=== PATIENT | female | born 1985 | race Caucasian/White ===

== ENCOUNTER 2022-05-30 11:03 | Outpatient (CLI) | payer BC, SELFPAY ==
[2022-05-30 13:57] LABS: Basophils Absolute Auto 0.04 K/uL (0.00-0.30); Basophils Percent Auto 0.6 % (0.0-3.0); Eosinophils Absolute Auto 0.07 K/uL (0.00-0.50); Eosinophils Percent Auto 1.1 % (0.0-7.0); Hematocrit 42.1 % (33.0-51.0); Hemoglobin* 13.7 gm/dL (12.0-16.0); Lymphocytes Absolute Auto 1.49 K/uL (0.90-2.90); Lymphocytes Percent Auto 23.7 % (20-44); Mean Corpuscular HGB Conc 33 gm/dL (32-36); Mean Corpuscular Hemoglobin 30 pg (26-34); Mean Corpuscular Volume 91 fL (80-100); Monocytes Percent Auto 7.8 % (0.0-11.0); Neutrophils Absolute Auto 4.21 K/uL (1.7-7.0); Neutrophils Percent Auto 66.8 % (42.0-72.0); Platelet Count* 191 K/uL (140-440); RDW Coefficient of Variation % 12.5 % (11.5-15.5); Red Blood Count 4.65 m/uL (4.00-5.20)
[2022-05-30 14:01] LABS: Slide Review Reflex No
[2022-05-30 14:05] LABS: Chloride* 102 mmol/L (96-114); Potassium* 4.4 mmol/L (3.6-5.1); Sodium* 138 mmol/L (135-149)
[2022-05-30 14:08] LABS: Blood Urea Nitrogen* 18 mg/dL (5-24); Carbon Dioxide* 30 mmol/L (20-32); Creatinine* 0.7 mg/dL (0.5-1.5); Estimated Glomerular Filt Rate 116 ml/min
[2022-05-30 14:09] LABS: Calcium* 9.2 mg/dL (8.4-10.6); Glucose* 77 mg/dL (60-115)
== END 2022-05-30 11:04 | disposition home or self-care (01) ==
PROVIDERS: PCP Family Medicine; Visit Provider Family Medicine
DX: R53.83 Other fatigue (principal); R20.2 Paresthesia of skin
CPT/HCPCS: 80048; 84443; 85025

== ENCOUNTER 2022-12-30 14:02 | Outpatient (CLI) | payer BC, SELFPAY | END 2022-12-30 14:03 | disposition home or self-care (01) | PROVIDERS: PCP Family Medicine; Visit Provider Family Medicine | DX: R63.4 Abnormal weight loss (principal); E55.9 Vitamin D deficiency, unspecified | CPT/HCPCS: 80053; 84443; 85025; 86703 ==

== ENCOUNTER 2023-01-22 08:57 | Outpatient (CLI) | payer BC, SELFPAY ==
--- NOTE | 2023-01-22 09:00 | CRLHL7_ITS ---
For Patients: As a result of the Century Cures Act, medical imaging exams and procedure reports are released immediately into your electronic medical record. You may view this report before your referring provider. If you have questions, please contact your health care provider. Indication: SINUSITIS. NASAL PRESSURE Technique: Performed without IV contrast Comparison: None available Findings: Frontal sinuses: Clear. Ethmoid sinuses: Partial opacification of the left ethmoid sinus. Clear right ethmoid sinus. Maxillary sinuses: Mucosal thickening within the maxillary sinuses bilaterally, minimal. The maxillary sinus drainage pathways are patent on both sides. Sphenoid sinuses: Clear, including both sphenoethmoidal recesses. Nasal Cavity: Bilateral postoperative changes are present. Mild rightward curvature of the anterior nasal septum. No nasal polyps. Narrowing and spurring at the temporomandibular joints bilaterally. The visualized portions of the orbits, intracranial contents and upper soft tissue neck are grossly negative. Impression: 1. Bilateral postoperative changes. 2. Mild mucosal thickening in both maxillary sinuses and the left ethmoid sinus. Sinus drainage pathways are clear. 3. 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 Please note that all CT scans at this facility use dose modulation, iterative reconstruction, and/or weight-based dosing when appropriate to reduce radiation dose to as low as reasonably achievable. Dictated by Yassine Deleon MD @ 01/22/2023 12:15:38 PM (Electronically Signed)
== END 2023-01-22 08:58 | disposition home or self-care (01) ==
LOC: CT 08:58
PROVIDERS: PCP Family Medicine; Visit Provider Otolaryngology
DX: J32.9 Chronic sinusitis, unspecified (principal); J32.0 Chronic maxillary sinusitis; J32.2 Chronic ethmoidal sinusitis
CPT/HCPCS: 70486

== ENCOUNTER 2023-09-24 08:59 | Outpatient (CLI) | payer BC, SELFPAY ==
--- OUTSIDE RECORDS SUMMARY | 2023-09-24 09:03 | XMS_ITS | Continuity of Care Document ---
Author Name Unknown Organization [facility] Address [address] [place] [address] Phone Care Team Providers Care Machine Leather Trimmer Name Role Phone Madiha OSEI MD, Blair Unavailable Unavailable Allergies, Adverse Reactions, Alerts Substance Reaction Status Criticality amoxicillin Rash Active No Information cefaclor ceclor syrum sickness Active No Inf ormation Medications Medication Instructions Dosage Effective Dates (start - stop) Status Comments Buproban 150 mg Tab take 1 tablet (150MG) by oral route 2 times every day - Active Singulair 10 mg Tab take 1 tablet (10MG) by oral route every day in the evening 10 MG - Active Advair Diskus 250 mcg-50 mcg/dose for Inhalation inhale 1 puff by inhalation route 2 times every day in the morning and evening approximately 12 hours apart 1.00 puff - Active ProAir HFA 90 mcg/Actuation Aerosol Inhaler inhale 2 puff by inhalation route every 4 - 6 hours as needed - Active ZOFRAN ODT 8 mg disintegrating tablet take 1 tablet (8MG) by ORAL route 3 times every day and place on top of the tongue where it will dissolve, then swallow 8 MG - Active omeprazole 40 mg Cap, Delayed Release take 1 capsule (40MG) by oral route every day before a meal 40 MG - Active lorazepam 1 mg Tab take 1 tablet (1MG) by oral route 2 times every day 1 MG - Active Elrosa 5 mg-325 mg tablet 1-2 per day - No Longer Active Topamax 100 mg tablet take 1 Tablet (100MG) by oral route 2 times every day 100 MG - No Longer Active Procedures Procedure Date Triggerpoint 3 Muscle Ultrason Guidan Needle Bx-rad 4 Offic/outpt E&m Estab Mod-hi 2 14 Offic/outpt E&m Estab Mod-hi 2 13 Inj Anes Facet Jt; Cerv/thor-1st Level N Inj Anes Facet Jt; Cerv/thor-2nd Level N Inj Anes Facet Jt; Cerv/thor-3rd Level N Mod cs by same phys, 5 yrs + Inj Anes Facet Jt; Cerv/thor-1st Level N Inj Anes Facet Jt; Cerv/thor-2nd Level N Inj Anes Facet Jt; Cerv/thor-3rd Level N Triggerpoint 1-2 Muscle Depomedrol 80mg Offic/outpt E&m Estab Mod-hi 2 13 Offic/outpt E&m Estab Mod-hi 2 13 Marcaine 30ml Pepperell Only Sterile Any Size 3 Local Tray Offic/outpt E&m Estab Mod-hi 2 13 Inj Anes Facet Jt; Cerv/thor-3rd Level M Inj Anes Facet Jt; Cerv/thor-1st Level M Inj Anes Facet Jt; Cerv/thor-2nd Level M Mod cs by same phys, 5 yrs + IV Cons Sed each addl 15M Lo Osm Contr Mat (200-249mg) Offic/outpt E&m Estab Mod-hi 2 13 Triggerpoint 1-2 Muscle Depomedrol 80mg Offic/outpt E&m Estab Mod-hi 2 13 Psychotherapy, 45 minutes with patient o r family Offic/outpt E&m Estab Low-mod 3 Inj Not Lytic-epidur; Cerv/tho 13 Epidurography Rad S&i Moderate sedation services Inj Not Lytic-epidur; Cerv/tho 13 Ultrason Guidan Needle Bx-rad 3 Triggerpoint 1-2 Muscle Depomedrol 80mg QA DONE Offic/outpt E&m Estab Mod-hi 2 13 Psychiatric Diagnostic Evaluation Offic/outpt E&m Estab Mod-hi 2 13 Offic/outpt E&m Estab Mod-hi 2 12 Offic/outpt E&m Estab Mod-hi 2 12 Offic/outpt E&m Estab Low-mod 2 Offic/outpt E&m Estab Mod-hi 2 12 Inj Anes Facet Jt; Cerv/thor-1st Level J Moderate sedation services Inj Anes Facet Jt; Cerv/thor-1st Level J Inj Anes Facet Jt; Cerv/thor-1st Level J Inj Anes Facet Jt; Cerv/thor-3rd Level J Inj Anes Facet Jt; Cerv/thor-2nd Level J Inj Anes Facet Jt; Cerv/thor-1st Level J Inj Anes Facet Jt; Cerv/thor-2nd Level J Inj Anes Facet Jt; Cerv/thor-3rd Level J Inj Anes Facet Jt; Cerv/thor-1st Level J Inj Anes Facet Jt; Cerv/thor-2nd Level J Inj Anes Facet Jt; Cerv/thor-3rd Level J Inj Anes Facet Jt; Cerv/thor-3rd Level J Inj Anes Facet Jt; Cerv/thor-1st Level J Inj Anes Facet Jt; Cerv/thor-2nd Level J Inj Anes Facet Jt; Cerv/thor-1st Level M ay-09-2012 Inj Anes Facet Jt; Cerv/thor-2nd Level M Inj Anes Facet Jt; Cerv/thor-3rd Level M Inj Anes Facet Jt; Cerv/thor-3rd Level M Inj Anes Facet Jt; Cerv/thor-2nd Level M Inj Anes Facet Jt; Cerv/thor-1st Level M Offic/outpt E&m Estab Mod-hi 2 12 Inj Anes Facet Jt; Cerv/thor-2nd Level A Inj Anes Facet Jt; Cerv/thor-1st Level A Inj Anes Facet Jt; Cerv/thor-3rd Level A Inj Anes Facet Jt; Cerv/thor-1st Level A Inj Anes Facet Jt; Cerv/thor-3rd Level A Inj Anes Facet Jt; Cerv/thor-2nd Level A Moderate sedation services Greater Occipital Block Depomedrol 80mg Offic/outpt E&m Estab Mod-hi 2 12 QA DONE Inj Not Lytic-epidur; Cerv/tho 12 Inj Not Lytic-epidur; Cerv/tho 12 Offic/outpt E&m Estab Mod-hi 2 12 Offic Cons New/estab Mod-hi 60 12 QA DONE Advance Directives Directive Yes / No Effective Date File Name No Information Encounters Encounter Description Practice Location Reason(s) For Visit Diagnoses Date Provider Providers Copied on Encounter LORI Esquivel, [address], [place], [place], [address], [place] tel:[phone] [facility] No Information 4 Madiha Pinto. [address] [place], [address], [place]. tel:[phone] Referring Provider: Govind Justice MD, [address], [place], [address]. tel:[phone] Offic/outpt E&m Estab Mod-hi [address] [facility], [address], [place], [place], [address], [place] tel:[phone] [facility] No Information 4 Kasey Tucker Nabeel. [address] [place], [address], [place]. Referring Provider: Govind Justice MD, [address], [place], [address]. tel:[phone] Offic/outpt E&m Estab Mod-hi 2 [facility], [address], [place], [place], [address], [place] tel:[phone] [facility] No Information 3 Kasey Tucker [facility]. [address] [place], [address], [place]. Referring Provider: Govind Justice MD, [address], [place], [address]. tel:[phone] [facility], [address], [place], [place], [address], [place] tel:[phone] [facility] [place] No Information 3 Sarah Metzger. [address], [place], [place], [address], [place]. tel:[phone] Referring Provider: Govind Justice MD, [address], [place], [address]. tel:[phone] [facility], [address], [place], [address], [place] tel:[phone] [facility] [place] No Information 3 Sarah Metzger. [address], [place], [place], [address], [place]. tel:[phone] Referring Provider: Yassine Cortez, [address], [place], [address] . tel:[phone] [facility], [address], [place], [place], [address], [place] [phone] [facility] No Information 3 No Information Referring Provider: Govind Justice MD, [address], [place], [address]. tel:[phone] Offic/outpt E&m Estab Mod-hi 2 [facility], [facility], [address], [place], [place], [address], [place] tel:[phone] [facility] No Information 3 Kasey Lees. [address] [place], [address], [place]. Referring Provider: Govind Justice MD, [address], [place], [address]. tel:[phone] Offic/outpt E&m Estab Mod-hi 2 [facility], [facility], [address], [place], [place], [address], [place] tel:[phone] [facility] No Information 3 Kasey Lees. [address] [place], [address], [place]. Referring Provider: Govind Justice MD, [address], [place], [address]. tel:[phone] [facility], [address], [place], [place], [address], [place] tel:[phone] [facility] No Information 3 Molly Patel. [address], [place], [place], [address], [place]. tel:[phone] Referring Provider: Govind Justice MD, [address], [place], [address]. tel:[phone] Offic/outpt E&m Estab Mod-hi 2 [facility], [facility], [address], [place], [place], [address], [place] tel:[phone] [facility] No Information 3 Parks Caitlin Nabeel. [address] [place], [address], [place]. Referring Provider: Govind Justice MD, [address], [place], [address]. tel:[phone] [facility], [facility], [address], [place], [place], [address], [place] tel:[phone] [facility] No Information 3 Sarah Metzger. [address], [place], [place], [address], [place]. tel:[phone] Referring Provider: Govind Justice MD, [address], [place], [address]. tel:[phone] Offic/outpt E&m Estab Mod-hi 2 [facility], [facility], [address], [place], [place], [address], [place] tel:[phone] [facility] No Information 3 Kasey Tucker Nabeel. [address] [place], [address], [place]. Referring Provider: Govind Justice MD, [address], [place], [address]. tel:[phone] [facility], [facility], [address], [place], [place], [address], [place] tel:[phone] [facility] No Information 3 No Information Referring Provider: Govind Justice MD, [address], [place], [address]. tel:[phone] Offic/outpt E&m Estab Mod-hi 2 [facility], [address], [place], [place], [address], [place] tel:[phone] [facility] No Information 3 Kasey Tucker Nabeel. [address] [place], [address], [place]. Referring Provider: Govind Justice MD, [address], [place], [address]. tel:[phone] Psychotherapy , 45 minutes with patient or family [facility], [address], [place], [place], [address], [place] tel:[phone] [facility] No Information 3 Marilou MIDDLETON Kaylan. [address], [place], [address], [place]. tel:[phone] Referring Provider: Govind Justice MD, [address], [place], [address]. tel:[phone] Offic/outpt E&m Estab Low-mod [facility], [address], [place], [place], [address], [place] tel:[phone] [facility] No Information 3 Parks Caitlin Lees. [address] [place], [address], [place]. Referring Provider: Govind Justice MD, [address], [place], [address]. tel:[phone] [facility], [address], [place], [place], [address], [place] tel:[phone] [facility] No Information 3 Sarah Metzger. [address], [place], [place], [address], [place]. tel:[phone] Referring Provider: Govind Justice MD, [address], [place], [address]. tel:[phone] [facility] [place], [address], [place], [address], [place] tel:[phone] [facility] No Information 3 Sarah Metzger. [address], [place], [place], [address], [place]. tel:[phone] Referring Provider: Yassine Cortez, [address], [place], [address] . tel:[phone] [facility], [address], [place], [place], [address], [place] tel:[phone] [facility] No Information 3 Sarah Metzger. [address], [place], [place], [address], [place]. tel:[phone] Referring Provider: Govind Justice MD, [address], [place], [address]. tel:[phone] Offic/outpt E&m Estab Mod-hi 2 [facility], [address], [place], [place], [address], [place] tel:[phone] [facility] No Information 3 Kasey Lees. [address] [place], [address], [place]. Referring Provider: Govind Justice MD, [address], [place], [address]. tel:[phone] Psychiatric Diagnostic Evaluation [facility], [address], [place], [place], [address], [place] tel:[phone] [facility] No Information 3 Marilou Kimbrough. [address], [place], [address], [place]. tel:[phone] Referring Provider: Govind Justice MD, [address], [place], [address]. tel:[phone] Offic/outpt E&m Estab Mod-hi 2 [facility], [facility], [address], [place], [place], [address], [place] tel:[phone] [facility] No Information 3 Kasey Lees. [address] [place], [address], [place]. Referring Provider: Govind Justice MD, [address], [place], [address]. tel:[phone] Offic/outpt E&m Estab Mod-hi 2 [facility], [address], [place], [place], [address], [place] tel:[phone] [facility] No Information 2 Eliz Maddox. [address], [place], [address], [place]. tel:[phone] Referring Provider: Govind Justice MD, [address], [place], [address]. tel:[phone] Offic/outpt E&m Estab Mod-hi 2 [facility], [address], [place], [place], [address], [place] tel:[phone] [facility] No Information 2 Kasey Lees. [address] [place], [address], [place]. Referring Provider: Govind Justice MD, [address], [place], [address]. tel:[phone] Offic/outpt E&m Estab Low-mod [facility], [address], [place], [place], [address], [place] tel:[phone] [facility] No Information 2 Kasey Kami. [address] [place], [address], [place]. Referring Provider: Govind Justice MD, [address], [place], [address]. tel:[phone] Offic/outpt E&m Estab Mod-hi 2 [facility], [address], [place], [place], [address], [place] tel:[phone] [facility] No Information 2 Kasey Kami. [address] [place], [address], [place]. Referring Provider: Govind Justice MD, [address], [place], [address]. tel:[phone] [facility], [address], [place], [place], [address], [place] tel:[phone] [facility] [place] No Information 2 Sarah Metzger. [address], [place], [place], [address], [place]. tel:[phone] Referring Provider: Govind Justice MD, [address], [place], [address]. tel:[phone] [facility] [place], [address], [place], [address], [place] tel:[phone] [facility] [place] No Information 2 Sarah Metzger. [address], [place], [place], [address], [place]. tel:[phone] Referring Provider: Yassine Cortez, [address], [place], [address] . tel:[phone] [facility] [place], [address], [place], [address], [place] tel:[phone] [facility] No Information 2 Sarah Metzger. [address], [place], [place], [address], [place]. tel:[phone] Referring Provider: Yassine Cortez, [address], [place], [address] . tel:[phone] [facility], [facility], [address], [place], [place], [address], [place] tel:[phone] [facility] [place] No Information 2 Sarah Metzger. [address], [place], [place], [address], [place]. tel:[phone] Referring Provider: Govind Justice MD, [address], [place], [address]. tel:[phone] [facility], [address], [place], [address], [place] tel:[phone] [facility] [place] No Information 2 Sarah Metzger. [address], [place], [place], [address], [place]. tel:[phone] Referring Provider: Yassine Cortez, [address], [place], [address] . tel:[phone] [facility], [facility], [address], [place], [place], [address], [place] tel:[phone] [facility] No Information 2 Sarah Metzger. [address], [place], [place], [address], [place]. tel:[phone] Referring Provider: Govind Justice MD, [address], [place], [address]. tel:[phone] [facility], [address], [place], [place], [address], [place] tel:[phone] [facility] [place] No Information 2 Sarah Metzger. [address], [place], [place], [address], [place]. tel:[phone] Referring Provider: Govind Justice MD, [address], [place], [address]. tel:[phone] [facility], [address], [place], [address], [place] tel:[phone] [facility] [place] No Information 2 Sarah Metzger. [address], [place], [place], [address], [place]. tel:[phone] Referring Provider: Yassine Cortez, [address], [place], [address] . tel:[phone] Offic/outpt E&m Estab Mod-hi 2 [facility], [address], [place], [place], [address], [place] tel:[phone] [facility] No Information 2 Kasey Lees. [address] [place], [address], [place]. Referring Provider: Govind Justice MD, [address], [place], [address]. tel:[phone] [facility], [address], [place], [address], [place] tel:[phone] [facility] [place] No Information 2 Sarah Metzger. [address], [place], [place], [address], [place]. tel:[phone] Referring Provider: Yasisne Cortez, [address], [place], [address] . tel:[phone] [facility], [facility], [address], [place], [place], [address], [place] tel:[phone] [facility] [place] No Information 2 Sarah Metzger. [address], [place], [place], [address], [place]. tel:[phone] Referring Provider: Govind Justice MD, [address], [place], [address]. tel:[phone] Offic/outpt E&m Estab Mod-hi 2 [facility], [facility], [address], [place], [place], [address], [place] tel:[phone] [facility] No Information 2 [facility]. [address], [place], [address], [place]. tel:[phone] Referring Provider: Govind Justice MD, [address], [place], [address]. tel:[phone] [facility], [address], [place], [place], [address], [place] tel:[phone] [facility] [place] No Information 2 Sarah Metzger. [address], [place], [place], [address], [place]. tel:[phone] Referring Provider: Govind Justice MD, [address], [place], [address]. tel:[phone] [facility], [address], [place], [address], [place] tel:[phone] [facility] No Information 2 Sarah Metzger. [address], [place], [place], [address], [place]. tel:[phone] Referring Provider: Yassine Cortez, [address], [place], [address] . tel:[phone] Offic/outpt E&m Estab Mod-hi 2 [facility], [address], [place], [place], [address], [place] tel:[phone] [facility] No Information 2 Kasey Tucker Nabeel. [address] [place], [address], [place]. Referring Provider: Govind Justice MD, [address], [place], [address]. tel:[phone] Offic Cons New/estab Mod-hi 60 [facility], [address], [place], [place], [address], [place] tel:[phone] [facility] No Information 2 Kasey Tucker Nabeel. [address] [place], [address], [place]. Referring Provider: Govind Justice MD, [address], [place], [address]. tel:[phone] Family History Family Member Type Diagnosis Age At Onset No Information Payers Payer name Insurance type Covered democrat ID Authorwilmer gipson(s) Medical Assistance [facility] [id number] Social History Type Description Quantity Date Captured Comments Alcohol Use Details No Caffeine Use Details Unknown Tobacco Use Status No Information Smoking Status Smoker, current stat us unknown Non-Smoking Tobacco Use Details : No Details Available : No Details Available Sex Female Chief Complaint And Reason For Visit No Information Reason For Referral Reason For Referral No Information History Of Present Illness Encounter Date Complaint History Of Prese nt Illness No Information Functional Status Date Functional Assessmen t No Information Instructions Date Instruction Additional Infor mation No Information Assessments Type Assessment Date No Information Patient Care Teams Name Effective Dates (start - stop) Status Members No Information
== END 2023-09-24 09:00 | disposition home or self-care (01) ==
PROVIDERS: PCP Family Medicine; Visit Provider Family Medicine
DX: E55.9 Vitamin D deficiency, unspecified (principal); R63.4 Abnormal weight loss; R00.0 Tachycardia, unspecified
CPT/HCPCS: 80048; 84443; 85025

== ENCOUNTER 2024-09-24 14:19 | Outpatient (CLI) | payer BC, SELFPAY ==
[2024-09-24 18:34] LABS: Bacterial Vaginosis* Negative (Negative); Candida glab/krus NOT DETECTED (No Detected); Candida species NOT DETECTED (No Detected); Trichomonas vaginalis NOT DETECTED (No Detected)
[2024-09-24 19:05] LABS: Chlamydia DNA Amplified* NOT DETECTED (No Detected); GC DNA Amplified* NOT DETECTED (No Detected)
[2024-09-29 09:29] LABS: HPV Source Cervix; HPV, High Risk by TMA Not Detected
== END 2024-09-24 14:20 | disposition home or self-care (01) ==
PROVIDERS: PCP Family Medicine; Visit Provider Registered Nurse
DX: N89.8 Other specified noninflammatory disorders of vagina (principal); Z12.4 Encounter for screening for malignant neoplasm of cervix; Z13.6 Encounter for screening for cardiovascular disorders; Z13.1 Encounter for screening for diabetes mellitus; Z11.51 Encounter for screening for human papillomavirus (HPV)
CPT/HCPCS: 80061; 81513; 84443; 87481; 87491; 87591; 87624; 87625; 87661; 88141; 88142

== ENCOUNTER 2024-10-06 08:40 | Outpatient (CLI) | payer BC, SELFPAY ==
--- NOTE | 2024-10-06 08:45 | CRLHL7_ITS ---
For Patients: As a result of the Cures Act, medical imaging exams and procedure reports are released immediately into your electronic medical record. You may view this report before your referring provider. If you have questions, please contact your health care provider. DIGITAL DIAGNOSTIC BILATERAL MAMMOGRAM USING TOMOSYNTHESIS AND COMPUTER-AIDED DETECTION LEFT BREAST ULTRASOUND CLINICAL HISTORY: LEFT breast lump/pain. COMPARISON: 03/06/2021. TECHNIQUE: Digital BILATERAL mammogram in four projections with computer-aided detection. Tomosynthesis was used in this interpretation. Real-time ultrasound imaging of LEFT breast with imaging documentation. BREAST COMPOSITION: The breasts are extremely dense, which lowers the sensitivity of mammography. FINDINGS: 3D CC/MLO BILATERAL mammogram images submitted. No suspicious mass or architectural distortion. No suspicious calcifications or adenopathy. Targeted LEFT breast ultrasound performed at 6 o`clock 5 cm from the nipple. Normal dense fibroglandular tissue. No fibrocystic change or solid mass. IMPRESSION: No suspicious findings. No evidence of malignancy. RECOMMENDATIONS: Age-appropriate screening mammography. Clinical follow-up. A lay language report of this examination will be provided to the patient. BI-RADS Category 2: Benign Dictated by Yassine Deleon MD @ 10/06/2024 9:44:10 AM jj/Dictated by: Yassine Deleon MD @ 10/06/2024 9:44:00 AM (Electronically Signed)
--- NOTE | 2024-10-06 09:15 | CRLHL7_ITS ---
For Patients: As a result of the Cures Act, medical imaging exams and procedure reports are released immediately into your electronic medical record. You may view this report before your referring provider. If you have questions, please contact your health care provider. SEE DIGITAL DIAGNOSTIC BILATERAL MAMMOGRAM PERFORMED SAME DAY [email or web address] james/Dictated by: Yassine Deleon MD @ 10/06/2024 9:44:00 AM (Electronically Signed)
== END 2024-10-06 08:41 | disposition home or self-care (01) ==
LOC: MAMMO 08:41
PROVIDERS: PCP Family Medicine; Visit Provider Registered Nurse
DX: N63.20 Unspecified lump in the left breast, unspecified quadrant (principal); R92.332 Mammographic heterogeneous density, left breast; N64.4 Mastodynia
CPT/HCPCS: 76642; 77066; G0279

== ENCOUNTER 2025-06-01 10:18 | Outpatient (CLI) | payer BC, SELFPAY ==
[2025-06-01 12:28] LABS: Bacterial Vaginosis* POSITIVE (Negative); Candida glab/krus NOT DETECTED (No Detected)
[2025-06-01 12:58] LABS: Chlamydia DNA Amplified* NOT DETECTED (No Detected); GC DNA Amplified* NOT DETECTED (No Detected)
== END 2025-06-01 10:19 | disposition home or self-care (01) ==
PROVIDERS: PCP Family Medicine; Visit Provider Registered Nurse
DX: N89.8 Other specified noninflammatory disorders of vagina (principal); R30.0 Dysuria
CPT/HCPCS: 81513; 87086; 87481; 87491; 87591; 87661